=== PATIENT | male | born 1990 | race Caucasian/White ===

== ENCOUNTER 2020-12-12 08:16 | Emergency (ER) | payer OTHER ==
[~2020-12-12] VITALS: Ht 162.6 cm; Wt 52.2 kg
[2020-12-12 08:43] LABS: ABSOLUTE NEUTROPHILS 4.7 thou/uL (1.4-8.2); BASOPHILS 0.5 % (0.0-2.0); EOSINOPHILS 0.6 % (0.0-3.0); HEMATOCRIT 47.9 % (42.0-52.0); HEMOGLOBIN 16.2 gm/dL (14.0-18.0); LYMPHOCYTES 19.5 % (24.0-44.0); MCH 30.5 pg (26.0-34.0); MCHC 33.8 g/dL (28.0-37.0); MCV 90.3 fL (80.0-100.0); MONOCYTES 8.7 % (1.0-8.0); PLATELET COUNT 443 thou/uL (150-400); POLYS 70.7 % (36.0-66.0); RBC 5.31 mil/uL (4.50-6.00); RDW 13.6 % (10.5-14.5); WBC 6.6 thou/uL (4.0-11.0)
[2020-12-12 08:57] LABS: ANION GAP 10 mmol/L (7-16); BUN 9 mg/dL (7-18); CALCIUM 9.2 mg/dL (8.5-10.1); CHLORIDE 98 mmol/L (98-107); CO2 26 mmol/L (21-32); CREATININE 0.9 mg/dL (0.7-1.3); GLUCOSE 114 mg/dL (74-106); POTASSIUM 4.1 mmol/L (3.5-5.1); SODIUM 134 mmol/L (136-145)
[2020-12-12 09:00] LABS: URINE BILIRUBIN NEGATIVE (Negative); URINE BLOOD NEGATIVE (Negative); URINE CLARITY CLEAR; URINE COLOR YELLOW; URINE GLUCOSE-RANDOM* NEGATIVE (Negative); URINE KETONES 1+ (Negative); URINE LEUKOCYTES-REFLEX NEGATIVE (Negative); URINE NITRITE-REFLEX NEGATIVE (Negative); URINE PROTEIN (DIPSTICK) NEGATIVE (Negative); URINE UROBILINOGEN 0.2 E.U./dl (0.2-1.0)
[2020-12-12 09:06] LABS: AMP/METHAMP Negative (Negative); BARBITURATES Negative (Negative); BENZODIAZEPINES Negative (Negative); COCAINE Negative (Negative); METHADONE Negative (Negative); OPIATES Negative (Negative); PCP Negative (Negative)
[2020-12-12 09:07] LABS: ALBUMIN 4.9 g/dL (3.4-5.0); SALICYLATE < 2.8 mg/dL (2.8-20.0); SGOT 20 U/L (15-37); SGPT 27 U/L (16-63); TOTAL BILIRUBIN 0.6 mg/dL (0.2-1.0); TOTAL PROTEIN 8.3 g/dL (6.4-8.2); TROPONIN-I <0.06 ng/mL (<0.06)
--- NOTE | 2020-12-12 16:04 | EKG ---
[address] [place] [address] ELECTROCARDIOGRAM REPORT Name: JU MEYER Room #: REG DAFNE Thomas#: [id number] Admission: 12/12/20 Attend Phys: Discharge: Date of : 86 Report #: [id number] [facility] ED Test Date: 2020-12-12 Test Time: 08:44:45 Pat Name: JU MEYER Department: Room: Gender: M Weaving Machine Operator: : 1990 Requested By: Alonso Reyes Order Number: [id number] MD: Matthias Walsh Measurements Intervals [place] Rate: 70 P: 65 [place]: 131 QRS: 62 QRSD: 92 T: 24 QT: 376 QTc: 406 Interpretive Statements Sinus rhythm J Point elev, probable normal early repol pattern No previous ECG available for comparison Electronically Signed On 12-12-2020 16:03:48 [employer]ORTATION [employer] by Matthias Walsh [email or web address] <ELECTRONICALLY SIGNED> By: Matthias Walsh MD, [facility] 12/12/20 1603 [id number] Matthias Walsh MD, FACC /EPI
[2020-12-13 08:11] VITALS: BP 115/74
== END 2020-12-13 08:11 ==
LOC: ER 08:16 → EDBD 08:16 → ER 12-13 08:11
PROVIDERS: Emergency Medicine
DX: F25.9 Schizoaffective disorder, unspecified (principal); F19.90 Other psychoactive substance use, unspecified, uncomplicated; Z88.8 Allergy status to other drugs, medicaments and biological substances; Z20.822 Contact with and (suspected) exposure to COVID-19